=== PATIENT | male | born 1965 | race Caucasian/White ===

== ENCOUNTER 2017-04-02 12:00 | Emergency (ER) | payer OTHER ==
[2017-04-02 12:21] VITALS: BP 140/90
--- NOTE | 2017-04-02 13:07 | UC ---
Respiratory Complaint HPI - HPI Summary HPI Summary: Cough for 1yr. He has been told that he has COPD but does not have a pcp. He is cutting down on cigarrettes. Over the last 9months it is more difficult to take in deep breaths. He starts to cough with deep breaths. Today he has had one episode of small amount of blood. No fevers or chills. He is not on any inhalers. - History of Current Complaint Chief Complaint: UCRespiratory Stated Complaint: CHEST CONGESTION/PAIN COUGH Time Seen by Provider: 04/02/17 12:11 Hx Obtained From: Patient Onset/Duration: Gradual Onset, Lasting Days Severity Initially: Moderate Severity Currently: Moderate Character: Cough: Productive Aggravating Factors: Deep Breaths, Recumbent Position Alleviating Factors: Nothing Associated Signs And Symptoms: Positive: Hemoptysis, URI. Negative: Dyspnea, Fever, Chills, Calf Pain, Calf Swelling - Allergies/Home Medications Allergies/Adverse Reactions: Allergies Allergy/AdvReac Type Severity Reaction Status Date / Time No Known Allergies Allergy Verified 04/02/17 12:11 PMH/Surg Hx/FS Hx/Imm Hx Previously Healthy: No - copd. - Surgical History Surgical History: None - Family History Known Family History: Positive: None - Social History Occupation: Employed Full-time Alcohol Use: None Substance Use Type: None Smoking Status (MU): Light Every Day Tobacco Smoker Type: Cigarettes Amount Used/How Often: 3/4 CIGS PER DAY Have You Smoked in the Last Year: Yes - Immunization History Most Recent Influenza Vaccination: NOT IN 2017 Review of Systems Respiratory: Cough All Other Systems Reviewed And Are Negative: Yes Physical Exam Triage Information Reviewed: Yes Appearance: Well-Appearing, No Pain Distress, Well-Nourished Vital Signs: Initial Vital Signs Temp 99 F 04/02/17 12:12 Pulse 85 04/02/17 12:12 Resp 18 04/02/17 12:12 BP 140/90 04/02/17 12:12 Pulse Ox 98 04/02/17 12:12 Vital Signs Reviewed: Yes Eyes: Positive: Conjunctiva Clear ENT: Positive: Normal ENT inspection, Nasal congestion Neck exam: Normal Neck: Positive: Supple, Nontender, No Lymphadenopathy Respiratory: Positive: Lungs clear, Normal breath sounds, No respiratory distress, No accessory muscle use. Negative: Respiratory distress, Decreased breath sounds, Accessory muscle use, Crackles, Rhonchi, Stridor, Wheezing Cardiovascular: Positive: No Murmur, Pulses Normal, Brisk Capillary Refill Abdomen Description: Positive: No Organomegaly, Soft. Negative: CVA Tenderness (R), CVA Tenderness (L), Distended, Guarding Musculoskeletal: Positive: Strength Intact, ROM Intact, No Edema Neurological: Positive: Alert, Muscle Tone Normal. Negative: Fatigued Psychological: Positive: Age Appropriate Behavior Skin: Negative: rashes UC Diagnostic Evaluation - Laboratory O2 Sat by Pulse Oximetry: 98 - EKG Cardiac Rate: NL Ectopy: None ST Segment: Normal Respiratory Course/Dx - Course Course Of Treatment: He has had chest tightness and discomfort mainly associated with a cough. He had dizziness earlier today and became worried. Work up and exam benign. He does need pcp and we have given him some options. copd meds given as well. - Differential Dx/Diagnosis Provider Diagnoses: He has clear symptoms of copd with dry cough. He is very intent on getting PCP. We will try copd meds and inhalers for now. For his worsening acute symptoms we will prescribe z pack and prednisone. Discharge - Discharge Plan Condition: Good Disposition: HOME Prescriptions: Azithromyxin LEIGHANN (NF) [Z-Leighann (Zithromax) 250 mg tabs #6] 2 tab PO .TODAY, THEN 1 DAILY #6 tab Mometasone/Formoter 100/5 MDI* [Dulera 100/5 MDI*] 2 puff INH BID #1 mdi predniSONE TAB* [Deltasone TAB*] 40 mg PO DAILY #14 tab Tiotropium CAP.INH* [Spiriva CAP.INH*] 1 cap.inh INH DAILY #1 cap.inh Patient Education Materials: COPD (Chronic Obstructive Pulmonary Disease) (ED) Referrals: João Che MD [Medical Doctor] - Jason Soriano DO [Doctor of Osteopathy] - Non Staff,Doctor [Primary Care Provider] -
--- NOTE | 2017-04-02 13:14 | RAD ---
Indication: Hemoptysis, cough. 2 views of the chest including dual energy PA views demonstrates hyperinflated lung kraus. No pleural fluid, pneumonia or pneumothorax is noted. No alveolar consolidation is noted. IMPRESSION: Hyperinflated lung kraus. No evidence of alveolar consolidation is noted.
== END 2017-04-02 13:38 | disposition home or self-care (01) ==
LOC: UCCORT 12:00
DX: J44.9 Chronic obstructive pulmonary disease, unspecified (principal); R05 Cough; R07.89 Other chest pain; F17.210 Nicotine dependence, cigarettes, uncomplicated
CPT/HCPCS: 71046; 93005; 99212; G0463